=== PATIENT | male | born 1965 | race Caucasian/White ===

== ENCOUNTER 2024-03-22 18:41 | Outpatient (RCR) | payer OTHER, SELFPAY | END 2024-03-22 23:59 | disposition home or self-care (01) | LOC: RPT 18:41 | PROVIDERS: ATTENDING PHYSICIAN Family Medicine | DX: M76.71 Peroneal tendinitis, right leg (principal); Z73.6 Limitation of activities due to disability | CPT/HCPCS: 97010; 97110; 97112; 97140; 97162 ==

== ENCOUNTER 2025-02-16 06:13 | Outpatient (RCR) | payer OTHER, SELFPAY | END 2025-02-16 23:59 | disposition home or self-care (01) | LOC: RPT 06:13 | PROVIDERS: ATTENDING PHYSICIAN Nurse Practitioner Family | DX: M25.572 Pain in left ankle and joints of left foot (principal); Z73.6 Limitation of activities due to disability; R26.89 Other abnormalities of gait and mobility; G20.A1 Parkinson's disease without dyskinesia, without mention of fluctuations | CPT/HCPCS: 97110; 97162 ==

== ENCOUNTER → 2025-02-16 09:08 | Outpatient (REF) | payer OTHER, SELFPAY | LOC: RAD 09:08 | PROVIDERS: ATTENDING PHYSICIAN Nurse Practitioner Family; FAMILY PHYSICIAN Family Medicine | DX: M25.572 Pain in left ankle and joints of left foot (principal) | CPT/HCPCS: 73610; 73630 ==

== ENCOUNTER 2025-02-24 09:02 | Outpatient (RCR) | payer OTHER, SELFPAY | END 2025-02-24 23:59 | disposition home or self-care (01) | LOC: RPT 09:02 | PROVIDERS: ATTENDING PHYSICIAN Nurse Practitioner Family | DX: M25.572 Pain in left ankle and joints of left foot (principal); R26.89 Other abnormalities of gait and mobility; G20.A1 Parkinson's disease without dyskinesia, without mention of fluctuations; Z73.6 Limitation of activities due to disability | CPT/HCPCS: 97110 ==

== ENCOUNTER 2025-03-30 09:06 | Outpatient (RCR) | payer OTHER, SELFPAY | END 2025-03-30 23:59 | disposition home or self-care (01) | LOC: RPT 09:06 | PROVIDERS: ATTENDING PHYSICIAN Nurse Practitioner Family | DX: M25.572 Pain in left ankle and joints of left foot (principal); R26.89 Other abnormalities of gait and mobility; G20.A1 Parkinson's disease without dyskinesia, without mention of fluctuations; Z73.6 Limitation of activities due to disability | CPT/HCPCS: 97110; 97140 ==

== ENCOUNTER 2025-08-23 06:26 | Day surgery (SDC) | payer OTHER, SELFPAY | END 2025-08-23 12:07 | disposition home or self-care (01) | LOC: GI 06:26 | PROVIDERS: ATTENDING PHYSICIAN Internal Medicine | DX: Z12.11 Encounter for screening for malignant neoplasm of colon (principal); K57.30 Diverticulosis of large intestine without perforation or abscess without bleeding; K63.5 Polyp of colon; Z86.0101 Personal history of adenomatous and serrated colon polyps | CPT/HCPCS: 45385; 88305 ==

== ENCOUNTER 2025-09-22 11:10 | Outpatient (RCR) | payer OTHER, SELFPAY | END 2025-09-22 23:59 | disposition home or self-care (01) | LOC: RPT 11:10 | PROVIDERS: ATTENDING PHYSICIAN Nurse Practitioner Family; FAMILY PHYSICIAN Family Medicine | DX: M25.561 Pain in right knee (principal); Z73.6 Limitation of activities due to disability; M25.661 Stiffness of right knee, not elsewhere classified; M62.81 Muscle weakness (generalized); R26.2 Difficulty in walking, not elsewhere classified; R26.89 Other abnormalities of gait and mobility; X58.XXXD Exposure to other specified factors, subsequent encounter | CPT/HCPCS: 97110; 97162 ==

== ENCOUNTER 2025-10-19 08:35 | Outpatient (RCR) | payer OTHER, SELFPAY | END 2025-10-19 23:59 | disposition home or self-care (01) | LOC: RPT 08:35 | PROVIDERS: ATTENDING PHYSICIAN Nurse Practitioner Family; FAMILY PHYSICIAN Family Medicine | DX: S89.91XD Unspecified injury of right lower leg, subsequent encounter (principal); T14.8XXD Other injury of unspecified body region, subsequent encounter (principal); M25.561 Pain in right knee; X58.XXXD Exposure to other specified factors, subsequent encounter; Z73.6 Limitation of activities due to disability; R26.89 Other abnormalities of gait and mobility; M25.661 Stiffness of right knee, not elsewhere classified; M62.81 Muscle weakness (generalized) | CPT/HCPCS: 97110; 97112 ==

== ENCOUNTER 2025-11-04 08:19 | Outpatient (RCR) | payer OTHER, SELFPAY | END 2025-11-10 13:36 | disposition home or self-care (01) | LOC: RPT 08:19 | PROVIDERS: ATTENDING PHYSICIAN Nurse Practitioner Family; FAMILY PHYSICIAN Family Medicine | DX: S89.91XD Unspecified injury of right lower leg, subsequent encounter (principal); M25.561 Pain in right knee; Z73.6 Limitation of activities due to disability; R26.89 Other abnormalities of gait and mobility; M25.661 Stiffness of right knee, not elsewhere classified; M62.81 Muscle weakness (generalized); X58.XXXD Exposure to other specified factors, subsequent encounter; T14.8XXD Other injury of unspecified body region, subsequent encounter | CPT/HCPCS: 97110; 97112 ==